=== PATIENT | male | born 1975 | race African-American/Black ===

== ENCOUNTER 2022-02-18 13:52 | Emergency (ER) | payer OTHER ==
[2022-02-18] MEDS ORDERED: Lorazepam 2 MG/ML VIAL ONE (14:36)
[2022-02-18 14:42] LABS: #Monocytes 1.2 10x3/uL (0.0-1.1); #Neutrophils 10.6 10x3/uL (1.5-8.4); %Basophils 0.2 % (0.0-2.0); %Eosinophils 0.1 % (0.0-6.0); %Lymphocytes 5.6 % (18.0-47.0); %Monocytes 9.4 % (0.0-10.0); %Neutrophils 84.1 % (40.0-75.0); Hemoglobin 7.1 g/dL (13.5-17.5); Mean Corpuscular HGB CONC 33.3 g/dL (32.0-36.0); Mean Corpuscular Hemoglobin 23.2 pg (27.0-33.0); Mean Corpuscular Volume 69.6 fl (81.2-95.1); Mean Platelet Volume 9.3 fl (7.4-10.4); Platelet Count 427 10x3/uL (150-450); RBC Distribution Width 16.3 % (11.5-14.5); Red Blood Cell (RBC) Count 3.06 10x6/uL (4.32-5.72); White Blood Cell (WBC) Count 12.6 10x3/uL (3.5-10.5)
[2022-02-18 14:53] LABS: Acetaminophen Less than 10.0 mcg/mL (10.0-30.0); Alcohol Less than 10 mg/dL (Less than 10); Salicylate Less than 8.0 mg/dL (15.0-30.0)
[2022-02-18 15:22] LABS: Bilirubin Neg (Negative); Blood, Urine 150 (Negative); Clarity Clear (Clear); Glucose, Urine (Dipstick) Normal (Negative); Ketone, Urine 5 mg/dL (Negative); Leukocyte 25 (Negative); Nitrite Negative (Negative); Protein, Urine (Dipstick) 30 mg/dl (Neg-Trace); Specific Gravity, Urine 1.015 (1.005-1.030); Urobilinogen Normal mg/dL (Less than 2)
[2022-02-18 15:28] LABS: ALT (SGPT) 9 U/L (8-55); AST (SGOT) 46 U/L (5-34); Alkaline Phosphatase 92 U/L (40-110); Anion Gap 19 mmol/L (10-20); BUN (Urea Nitrogen) 10 mg/dL (8.9-20.6); Bilirubin, Total 0.3 mg/dL (0.2-1.2); Calc. Creatinine Clearance 0 mL/min (70-130); Calcium 9.7 mg/dL (7.8-10.44); Carbon Dioxide 16 mmol/L (22-29); Chloride 104 mmol/L (98-107); Estimated GFR 67; Globulin 4.2 g/dL (2.4-3.5); Glucose 77 mg/dL (70-105); Protein, Total 8.2 g/dL (6.0-8.3); Sodium 135 mmol/L (136-145)
[2022-02-18 15:30] LABS: Amphetamine Not Detected (NotDetected); Barbiturates Screen Not Detected (NotDetected); Benzodiazepine Screen Not Detected (NotDetected); Cocaine Metabolite Screen Not Detected (NotDetected); Methadone Not Detected (NotDetected); Methamphetamine Not Detected (NotDetected); Opiate Screen Not Detected (NotDetected); Oxycodone Screen Not Detected (NotDetected); Phencyclidine (PCP) Detected (NotDetected); THC/Cannabinoid Screen Not Detected (NotDetected); Tricyclic Screen Not Detected (NotDetected)
[2022-02-18 15:36] LABS: Bacteria/HPF 1+ HPF (None Seen); WBC/HPF 0-3 HPF (0-3)
[2022-02-18 15:37] LABS: Mucous/LPF Rare LPF (<2+); Squamous Epithelial 0-3 HPF (0-3)
[2022-02-18 16:46] LABS: Anisocytosis SLIGHT = 6-15 cells (100X) (0-5/hpf); Hypochromia SLIGHT = 6-15 cells (100X) (0-5/hpf); Microcytosis SLIGHT = 6-15 cells (100X) (0-5/hpf); Target Cells SLIGHT = 2-5 cells (100X) (0-1/hpf)
[2022-02-18 16:47] LABS: Platelet Morphology Comment Appears Adequate
== END 2022-02-18 18:05 | disposition home or self-care (01) ==
LOC: CSHERS 13:52
DX: F16.129 Hallucinogen abuse with intoxication, unspecified (principal); I48.20 Chronic atrial fibrillation, unspecified; I10 Essential (primary) hypertension; F17.210 Nicotine dependence, cigarettes, uncomplicated
CPT/HCPCS: 80053; 80306; 80307; 81003; 81015; 82550; 84443; 85025; 93005; 94760; 96361; 96374; 99406; J2060

== ENCOUNTER 2024-10-26 06:02 | Day surgery (SDC) | payer MEDICAID ==
[2024-10-24 10:44] VITALS: BMI 24.9
[2024-10-26] MEDS ORDERED: Bupivacaine HCl 0.5%/Epinephrine 1:200,000/PF 30 ml Vial ONE (06:21)
[2024-10-26] MEDS ORDERED: CEFAZOLIN 2 GM VIAL ONE (06:48)
[2024-10-26] MEDS ORDERED: PROPOFOL 20 ML ONE (06:49)
[2024-10-26] MEDS ORDERED: Ondansetron PF 4 MG/2 ML Vial ONE (06:49)
[2024-10-26] MEDS ORDERED: Lidocaine 1% PF 5 ML VIAL ONE (06:49)
[2024-10-26] MEDS ORDERED: HYDROcodone/Acetaminophen 5/325 mg Tablet ONE (08:02)
== END 2024-10-26 08:35 | disposition home or self-care (01) ==
LOC: CSHSDC 06:02
PROVIDERS: ATTEND Surgery
PROC: 0JH60WZ Insertion of Totally Implantable Vascular Access Device into Chest Subcutaneous Tissue and Fascia, Open Approach (ICD-10-PCS; principal; 2024-10-26)
DX: C61 Malignant neoplasm of prostate (principal); F17.210 Nicotine dependence, cigarettes, uncomplicated; Z98.890 Other specified postprocedural states
CPT/HCPCS: 71045; A6258; C1788; J1642; J2405; J2704; J3010